=== PATIENT | male | born 1940 | race Caucasian/White ===

== ENCOUNTER 2016-09-27 18:49 | Observation (INO) | payer MEDICARE ==
[~2016-09-27] VITALS: Ht 185.4 cm; Wt 99.2 kg
[2016-09-27 18:50] VITALS: BP 157/85; PULSE 72; RESP 16; O2SAT 97
--- NOTE | 2016-09-27 18:56 | ED.REPORT ---
HPI-Headache Date of Service September 27, 2016 ED Provider: Dr. Emilio Shea 76 year old male with a hx of Afib on Coumadin, HTN and migraines who presents to the ER due to dizziness/vertigo since he woke up at 0730 this morning. His symptoms improved with remaining still. Immediately worsens with movement on position and sitting up. A few hours later he developed a generalized 6-7/10 headache which is worse with movement. Pt denies nausea and any recent falls or trauma. EMS was concerned when they noticed unequal BP's. R 142/90 and L 126/ 80.Pt was given IV fluids en route. 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 He has a history of migraines since he was a child. Nursing Notes Stated Complaint: VERTIGO,HEADACHE Chief Complaint: Headache Nursing Notes Reviewed: Yes Allergies: Coded Allergies: No Known Allergies (Unverified , 09/27/16) General Time Seen by MD: 18:55 Chief Complaint Headache Hx Obtained From: Patient, Spouse, EMS Arrived By: Ambulance Sudden in Onset?: No Onset Occurred: 9 - 12 hours ago Symptom Duration: Since onset Location: : Generalized Quality: Painful Severity: Current: Moderate Associated with: Reports: Vertigo, Denies: Nausea, Vomiting Exacerbated by: Head movement, Head position up, Head position down Risk-Headache NIH Stroke Scale Level of Consciousness: Alert and responsive (0) Ask Month & Age: Both questions right (0) Open/Close Eyes/Hand Dermatology Specialist: Performs both tasks (0) Horizontal EO Movements: None (0) Visual Shane: No visual loss (0) Facial Palsy: Normal symmetry (0) Right Arm Motor Drift (10s): No drift 10 sec (0) Left Arm Motor Drift (10s): No drift 10 sec (0) Right Leg Motor Drift (5s): No drift 5 sec (0) Left Leg Motor Drift (5s): No drift 5 sec (0) Limb Ataxia FNF/Heel-Hughes: No ataxia (0) Sensation (Arms/Legs/Face): No sensory loss (0) Language Aphasia: No aphasia, normal (0) Dysarthria: No dysarthria, normal (0) Extinction/Inattention: No exctinct/inattent (0) NIHSS Score: 0 Time NIHSS Performed: 19:15 Date NIHSS Performed: September 27, 2016 Past Medical History Past Medical History Hx migraine phenomenon DVT Reports: Hypertension Reports: Atrial fibrillation, Migraines Past Surgical History Bilat knee and ankle replacement Squamous Cell removed Smoking History Never Smoker Social History Other Social History: Good social support, Review of Systems Constitutional: Denies: Fever GI: Denies: Vomiting Neurologic: Reports: Dizziness, Headache, Spinning sensation, Denies: Change LOC, Syncope Complete sys rev & neg: except as marked. Physical Exam Initial Vital Signs Vital Signs (First) Date Time Temp Pulse Resp B/P Pulse Ox O2 Delivery O2 Flow Rate FiO2 09/27/16 18:50 36.6 72 16 157/85 97 Room Air Initial VS: Reviewed ENT: Mucous membranes moist, Conjunctiva normal, No scleral icterus Respiratory: Breath sounds normal, Clear to auscultation, No respiratory distress Abdomen / GI: Soft, Non-tender, No guarding, No rebound, No distention Extremities: Vascular intact, Neuro intact, No swelling, No tenderness Skin: Warm, Dry, No cyanosis Psychiatric: Mood/affect normal, Behavior normal, Normal thought content General/Constitutional: Awake, Alert Head / Eyes: Atraumatic, Normocephalic, PERRL Neck: Atraumatic, Full range of motion Neurologic: Oriented X3, Speech NL, No motor deficits Cardiovascular: Heart rate NL, No murmurs, Cap refill not delayed, Peripheral circulation NL, Pulses = bilaterally, No gross BP differential (148/78 on L; R 153/70) Heart Rate / Rhythm: Positive: Irreg irregular rhythm Interpretation & Diagnostics Lab Results Interpretation Result Diagram: 09/27/16199909/27/161999 Test 09/27/16 20:00 09/27/16 20:14 White Blood Count 4.1th/mm3 (3.8-10.1) Red Blood Count 4.96mil/mm3 (4.40-5.80) Hemoglobin 15.5g/dL (13.8-17.2) Hematocrit 46.0% (41.0-50.0) Mean Corpuscular Volume 92.7fL (81-100) Mean Corpuscular Hemoglobin 31.3pg (27.0-35.0) Mean Corpuscular Hemoglobin Concent 33.7% (32.0-37.0) Red Cell Distribution Width 12.5% (12.3-15.4) Platelet Count 189bil/L (150-400) Neutrophils (%) (Auto) 60.3% (40-74) Lymphocytes (%) (Auto) 27.1% (14-46) Monocytes (%) (Auto) 9.5% (4-12) Eosinophils (%) (Auto) 2.2% (0-5) Basophils (%) (Auto) 0.7% (0-3) Sodium Level 145mEq/L (134-144) Potassium Level 3.5mEq/L (3.5-5.2) Chloride Level 102mEq/L (97-108) Carbon Dioxide Level 28mmol/L (18-29) Blood Urea Nitrogen 19mg/dL (8-27) Creatinine 0.77mg/dL (0.76-1.27) Estimat Glomerular Filtration Rate 104mL/min (>59) Glucose Level 75mg/dL (60-99) Calcium Level 9.4mg/dL (8.5-10.1) Total Bilirubin 0.4mg/dL (0.0-1.2) Aspartate Amino Transf (AST/SGOT) 33U/L (0-50) Alanine Aminotransferase (ALT/SGPT) 26U/L (0-44) Alkaline Phosphatase 66U/L (25-160) Total Protein 6.9g/dL (6.4-8.4) Albumin 4.1g/dL (3.4-5.0) Hold Purple Top Tube Received (Received) Prothrombin Time 27.0sec (8.1-12.5) Prothromb Time International Ratio 2.48ratio Hold Blue Top Tube Received (Received) Urine Color Yellow (YELLOW) Urine Appearance Clear (CLEAR,HAZY) Urine pH 7.0 (5.0-8.0) Urine Specific Igo <1.005 (1.003-1.035) Urine Protein Negativemg/dL (NEG,TRACE) Urine Glucose (UA) Negativemg/dL (NEGATIVE) Urine Ketones Negativemg/dL (NEGATIVE) Urine Occult Blood Negative (NEGATIVE) Urine Nitrite Negative (NEGATIVE) Urine Bilirubin Negative (NEGATIVE) Urine Urobilinogen Normalmg/dL (NORMAL) Urine Leukocyte Esterase Negative (NEGATIVE) Urine RBC 0-2/hpf (0-2) Urine WBC 0-5/hpf (0-5) Urine Epithelial Cells Occasional/hpf (NONE-MOD) Urine Crystals None seen (NONE SEEN) Urine Bacteria None/hpf (NONE-FEW) Urine Hyaline Casts None/lpf (NONE) Urine Granular Casts None seen (NONE SEEN) Urine Waxy Casts None seen (NONE SEEN) Urine Red Blood Cell Casts None seen (NONE SEEN) Urine White Blood Cell Casts None seen (NONE SEEN) Urine Mucus None seen (None Seen) Urine Trichomonas None seen (NONE SEEN) Urine Yeast None (NONE SEEN) Urinalysis Comment None Urine Culture Reflexed Not indicated Hold Urine Received (Received) Hold [place] Top Tube Received (Received) General Lab Results Interp 1: Labs reviewed ECG Interpretation Time: 19:03 Interpreted by: ED physician Rhythm / Conduction: Atrial fibrillation (rate 66) Re-Eval/Medical Decision Re-Evaluation/Progress : Time of Eval: 20:55 Re-Evaluation/Progress Note: Pt still unable to stand secondary to symptoms. Headache improved but still present. Recommended admission. Pt understands and agrees with plan. All questions addressed. Consultation : Referral / Consult Name: Fredo Cardenas MD Consulted With: Hospitalist Call Returned at: 21:02 Electrical Apprentice: Will see patient, Agrees with eval, Agrees with plan, Accepts admit Counseled Regarding: Diagnosis, Lab results, Need for admission Discharge & Departure Impression: Primary Impression: Vertigo Additional Impression: Headache Headache type: unspecified Headache chronicity pattern: acute headache Intractability: not intractable Qualified Code: R51 - Headache Disposition: ADMITTED TO HOSPITAL Discharge Condition All VS Reviewed: Yes Scribe Attestation Portions of this note were transcribed by Sarah Denson. I, (Dr. Shea) personally performed the history, physical exam and medical decision-making; I reviewed and confirmed the accuracy of the information in the transcribed note. Signed by: Sarah Denson. Tim, 09/27/2016, 2103 Emilio Shea MD September 27, 2016 18:56 Sarah Denson September 27, 2016 19:09
[2016-09-27] MEDS ORDERED: 0.9% Sodium Chloride 1,000 ML IV ONE (19:31)
[2016-09-27] MEDS ORDERED: Ketorolac 15 mg/mL Inj IVPUSH ONE (19:35)
[2016-09-27] MEDS ORDERED: MetoCLOpramide 5 mg/mL 2 mL Inj IVPUSH ONE (19:35)
[2016-09-27 20:20] VITALS: BP 137/77; PULSE 66; RESP 19; O2SAT 93
[2016-09-27 21:02] LABS: BASOPHILS % (AUTO) 0.7 % (0-3); EOSINOPHILS % (AUTO) 2.2 % (0-5); MONOCYTES % (AUTO) 9.5 % (4-12); Mean Corpuscular Hemoglobin 31.3 pg (27.0-35.0); Mean Corpuscular Volume 92.7 fL (81-100); NEUTROPHILS % (AUTO) 60.3 % (40-74); Platelet Count 189 bil/L (150-400)
[2016-09-27 21:07] LABS: APPEARANCE,URINE CLEAR (CLEAR,HAZY); COLOR,URINE YELLOW (YELLOW); OCCULT BLOOD,URINE NEGATIVE (NEGATIVE); UROBILINOGEN,URINE NORMAL (NORMAL)
[2016-09-27 21:08] VITALS: BP 138/76; PULSE 75; RESP 19; O2SAT 92
[2016-09-27 21:10] LABS: INR 2.48 ratio
--- NOTE | 2016-09-27 21:49 | PCM.HPMED ---
Subjective Date of Service September 27, 2016 Primary Provider: Admitting Physician: Primary Care Physician: Other,Physician Attending Physician: Admit Status: From the Emergency Department Chief Complaint: Vertigo History of Present Illness: This is a 76-year-old male with past medical history significant for atrial fibrillation on chronic anticoagulation with Coumadin, hypertension, and migraine headaches who presents emergency department with vertigo. The patient states that he woke up this morning around 7 AM and had a spinning sensation. Symptoms improve when he sits still and worsen with any movement. Several hours after the vertigo began he developed a headache that was also worse with movement. He states the headache is a severity of 7/10 and described as throbbing in the forehead bilaterally. The headache is associated with phonophobia and photophobia. He describes mild nausea. he denies any vomiting , diarrhea, ear pain or discharge, recent URI symptoms such as congestion or cough, history of allergies. The patient's past medical history is significant for a suspected stroke several years ago which was later diagnosed as migraine phenomenon after a normal brain MRI. He has had chronic migraines since childhood which have worsened over the last several years. In the emergency department initial vitals were temperature 36.6 Celsius, pulse 72, respiratory rate 16, blood pressure 157/85, satting at 97% on room air. Initial laboratory values showed a CBC without concerning abnormalities. Sodium was 145. BUN 19, creatinine 0.77. PT 27, INR 2.48. Urinalysis within normal limits. NIHSS stroke scale completed in emergency department was 0. Brain MR showed moderate microvascular ischemic changes of aging but was otherwise unremarkable. In the emergency department patient was given Toradol, Reglan, and Benadryl. He did not have much relief of the vertigo from the medications and will be admitted. Review of Systems: A comprehensive review of systems was conducted with the patient and found to be negative except as above in the History of Present Illness. Allergies Coded Allergies: No Known Allergies (Unverified , 09/27/16) Home Medications Amlodipine 5mg dialy Warfarin 2mg everyday Chlorthalidone 25mg HS PMH History of migraine headaches with migraine phenomenon History of multiple DVT's. Hypertension Atrial fibrillation on chronic anticoagulation with Coumadin Surgical History Bilateral knee replacements. Squamous cell carcinoma removal. Family History Mom: osteoarthritis Dad: tachy-washington syndrome. Social History Hx Alcohol Use: No Hx Substance Use: No Hx Tobacco Use: No Smoking Status: Never Smoker Exam Vital Signs Vital Sign - Last Date Time Temp Pulse Resp B/P Pulse Ox O2 Delivery O2 Flow Rate FiO2 09/27/16 21:08 75 19 138/76 92 Room Air 09/27/16 18:50 36.6 Exam General: No acute distress, well-developed, well-nourished, appropriately interactive HEENT: Normocephalic, atraumatic. External ears without defect. Tympanic membrane without erythema. Pupils equal, round, and reactive to light and accommodation. Anicteric sclerae, moist conjunctivae, and no lid lag. Oropharynx free of erythema and cobble stoning with moist mucosa. Neck: Supple with full range of motion. No jugular venous distension. No bruits. No lymphadenopathy or thyromegaly. Cardiovascular: Regular rate and rhythm with no murmurs, rubs, or gallops appreciated Pulmonary: Clear to auscultation bilaterally with no crackles, wheezes, or rhonchi. Normal respiratory effort with no use of accessory muscles. Abdomen: Bowel tones present. Soft, nontender, nondistended. No hepatosplenomegaly or masses appreciated. Extremities: No clubbing, cyanosis, edema, or lymphadenopathy appreciated. Skin: Normal temperature, turgor, and texture; no rash, ulcers, or subcutaneous nodules appreciated. Neurological: Cranial nerves grossly intact. Normal muscle strength, tone, and bulk. Reflexes, coordination, and sensory function within normal limits. No known gait impairment. Psychiatric: Normal mood and affect. Alert and oriented to person, place, and time. Lab and Diagnostics Result Diagram: 09/27/16199909/27/161999 X-Rays, CTs and MRIs MRI stroke protocol 09/27/2016: IMPRESSION: BRAIN MRI: No acute intracranial abnormality is seen. Moderate microvascular ischemic change of aging is present. BRAIN MR ANGIOGRAM: No abnormalities the MR angiogram of the brain without contrast. NECK MR ANGIOGRAM: No abnormalities on MRI angiogram of the neck with contrast. The estimate of stenosis included in the report of the imaging study was calculated using the NASCET method Dictated by: Ricky Brown M.D. on 09/27/2016 at 22:07 Assessment & Plan This is a 76 year old male with history of atrial fibrillation who presents with new onset vertigo. The vertigo began this morning. The spinning sensation is worse with movement. Several hours after vertigo began a frontal throbbing headache developed with photophobia and phonophobia. This is likely represents BPPV. Differential includes CVA (MRI stroke protocol showed no concerning abnormality), infectious, meniere disease, neoplasm (doubt due to no systemic symptoms and normal MR), complex migraine. Persistent vertigo, present on admission, ongoing: -MRI stroke protocol showed no concerning abnormalities. -Unknown etiology but suspect BPPV vs. complex migraine. -Diazepam 2mg TID for vertigo. -Physical therapy consult ordered. Atrial fibrillation, present on admission, ongoing: -On admit PTT 27, INR 2.48. -Continue warfarin. History of migraine headaches, present on admission, ongoing: -Infrequent headaches. -Patient states the headache is somewhat improved after Toradol. Hypertension: -Continue Norvasc and chlorthalidone. DVT prophylaxis: patient on warfarin. Patient is admitted under observation status with expected length of stay less than 2 midnights due to severity of presenting symptoms, risk of adverse event, and complexity of treatment plan. Attending Statement The patient was seen and examined together with Dr. Duarte on 09/27 and I agree with the history, exam and plan as outlined in the note above. Andry Duarte DO September 27, 2016 21:48 Fredo Cardenas MD Sep 28, 2016 00:51
--- NOTE | 2016-09-27 22:16 | DRSVH ---
PROCEDURE: MRI STROKE PROTOCOL ([id number]) Pre- and post-contrast brain MRI, non-contrast brain MR angiogram, pre- and postcontrast neck MR ra ogram INDICATIONS: vertigo TECHNIQUE: Brain: Noncontrast axial T1 spin echo, axial T2 fast spin echo, sagittal and axial FLAIR, coronal T2 fast spin echo, axial gradient echo, axial diffusion and ADC through the brain. After the administr ation of contrast, axial 3D VIBE of the cranial vasculature and brain. Brain MRA: Non-contrast 3-D time of flight MR angiogram, with multiple ervtwho-yunexojui-czlubxcikj (MIP) reformats performed. Neck MRA: Axial and sagittal TruFISP through the neck. Coronal dynamic MR angiogram during administ ration of contrast in the arterial and venous phases, with 3-dimenstional bizcpmu-krrztftoq-horgyrtsc n (MIP) reformats constructed from subtraction images. COMPARISON: None. FINDINGS: Image quality: Excellent. BRAIN: CSF spaces: Ventricles are normal in size and shape. Basal cisterns are patent. No extra-axial flu id collections. Brain: No intracranial bleeds or mass effects. Miller-white matter interface is normal. Moderate antonina unt of periventricular and deep white matter increased signal on flair images consistent with acute v ascular ischemic change of aging. Diffusion weighted images show no acute ischemic insults. Brainste m appears normal. Normal intravascular flow voids are present. No abnormal intracranial enhancement . Skull and face: Calvarial marrow signal is normal. Orbits appear normal. Sinuses: Sinuses and mastoids show minimal mucosal thickening in the ethmoid sinuses and mild in the left maxillary sinus. BRAIN MR ANGIOGRAM: Anterior circulation: Intracranial internal carotid arteries are normal in size and enhancement. Th e flow within the paired anterior cerebral arteries is normal and symmetric. The flow within the mid dle cerebral arteries is normal and symmetric. The anterior communicating artery is seen. No stenos es, occlusions, or aneurysms. Posterior circulation: The visualized portions of the vertebral arteries demonstrate normal caliber, and join to form a normal appearing basilar artery. The flow within the posterior cerebral arteries is normal and symmetric. No stenoses, occlusions, or aneurysms. NECK MR ANGIOGRAM: Carotids: Great vessels demonstrate a conventional anatomy as they arise from the aortic arch. The origins of the common carotid arteries appear patent. The calibers and courses of both common caroti d arteries are normal. The bifurcation regions appear normal bilaterally. The internal carotid edwar giancarlo demonstrate normal course and caliber. Posterior circulation: The origins of the vertebral arteries appear patent. More superior portions of both vertebral arteries demonstrate normal course and caliber, and join to form a normal appearing basilar artery. Miscellaneous: Subclavian arteries appear patent. Pre-contrast images through the neck show no soft tissue abnormalities. IMPRESSION: BRAIN MRI: No acute intracranial abnormality is seen. Moderate microvascular ischemic change of aging is present. BRAIN MR ANGIOGRAM: No abnormalities the MR angiogram of the brain without contrast. NECK MR ANGIOGRAM: No abnormalities on MRI angiogram of the neck with contrast. The estimate of stenosis included in the report of the imaging study was calculated using the NASCET method Dictated by: Ricky Brown M.D. on 09/27/2016 at 22:07 Approved by: Ricky Brown M.D. on 09/27/2016 at 22:14
--- NOTE | 2016-09-27 22:16 | NUR ---
Report received from Katy in ED.
[2016-09-27 22:18] VITALS: BP 138/76; PULSE 75; RESP 19; O2SAT 92
[2016-09-27] MEDS ORDERED: Alum-Mag Hydrox-Simeth 30 mL Suspension PO PRN ×2 (22:35→22:40)
[2016-09-27] MEDS ORDERED: Ondansetron 2 mg/mL 2 mL Inj IVPUSH PRN (22:35)
[2016-09-27] MEDS ORDERED: Polyethylene Glycol (PEG) 17 Gm Powder PO PRN (22:40)
[2016-09-27] MEDS ORDERED: LEVO75TA4 PO (22:58)
[2016-09-27] MEDS ORDERED: TAMS0.4C29 PO (22:58)
[2016-09-27] MEDS ORDERED: LOSA100T29 PO (22:58)
[2016-09-27] MEDS ORDERED: MULT-140 PO (22:58)
[2016-09-27] MEDS ORDERED: AMLO5TAB2 PO (22:58)
[2016-09-27] MEDS ORDERED: DEXT1DRO8 BOTH_EYES (22:58)
[2016-09-27] MEDS ORDERED: HYG25 PO (22:58)
[2016-09-27] MEDS ORDERED: ACET325T51 PO (22:59)
[2016-09-27] MEDS ORDERED: WARF2TAB7 PO ×2 (23:00)
--- NOTE | 2016-09-27 23:08 | NUR ---
ADMIT Pt arrived on floor at 2300, ambulatory with 1-2P assistance. A&Ox4, no pain, "very hungry," talkative, reports vertigo when moving. Continuing care.
[2016-09-27 23:22] VITALS: BP 139/89; PULSE 69; RESP 20; O2SAT 94
[2016-09-28] VITALS (10 sets, daily range): BP systolic 119–158; BP diastolic 73–102; PULSE 54–75; RESP 18–24; O2SAT 95–96
--- NOTE | 2016-09-28 00:14 | NUR ---
MEDS Pt requested to take all HS medications--synthroid, cozaar, coumadin, & flomax--tonight to continue his regular regime. Already gave synthroid. Paged Dr. Duarte, awaiting reply. Addendum: 09/28/16 at 0021 by SILVINO ELE RN Dr. Duarte on unit and updated him on the medications pt would like to take. agrees to this and went to speak with pt. Continuing care.
--- NOTE | 2016-09-28 00:15 | NUR ---
CPAP Pt has cpap at home, did not bring tonight. Called Evens Kwon in [place] about this. He suggests using 2-3L NC and have pt's bring in cpap tomorrow night. Pt also has LIANE mouthpiece which he plans on using tonight.
--- NOTE | 2016-09-28 00:33 | PCM.PHAPRO ---
Progress Date of Service: Sep 28, 2016 Vertigo Warfarin Management Per Pharmacy: Indication: Atrial fibrillation ([id number] = 3) INR Goal: 2-3 Home Dose: Warfarin 4 mg Mon/Fri and 2 mg all other days Labs: Hct: 46 Plt: 189 INR: 2.48 Drug Interactions: None Recommendation: Warfarin 2 mg PO x 1 tonight (continuing patient's home dose) Pharmacy to continue to monitor and adjust dose as needed. Thank You, Jie Valle, Pharm D. Jie Valle Sep 28, 2016 00:33
--- NOTE | 2016-09-28 03:05 | NUR ---
[employer] called at 0305, pt had 4 beats of vtach. Pt sleeping sounding with regular breathing, when woken up pt reported asymptomatic. BP 119/73, HR 65, O2 93%. Paged Dr. Duarte with this information. Addendum: 09/28/16 at 0555 by SILVINO LEE RN 3 second pause at 0554. Agustin Duarte. Addendum: 09/28/16 at 0557 by SILVINO LEE RN Pt asymptomatic at 0555, sleeping soundly.
--- NOTE | 2016-09-28 09:06 | NUR ---
Case Management: ZAMORA and Medicare Part D given and explained to patient at bedside at 0845. No questions at this time. Signed original placed on hard chart; copy provided to ptVIOLET Oro RN
--- NOTE | 2016-09-28 10:24 | NUR ---
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 EMR reviewed: Pt has [employer] plan of [place]. His PCP is Dr Garcia at [facility]. Readmit score is 1. No VA benefits, no LTC insurance. Pt's will bring in DPOA paperwork. See attached CM initial assessment. DIRECTOR OF NUCLEAR MEDICINE met with pt - pt's also in the room. Introduced D/C planning and explained SW role. Pt lives at home with his on [facility]. He is fairly independent at baseline. He uses a cane and a walker due to frequent weakness - multiple surgeries for joint replacement as well as vertigo. He is enrolled in outpt PT at [facility]. Pt and plan to d/c home but worries about leaving him at home due to frequent falls. DIRECTOR OF NUCLEAR MEDICINE provided Senior Resources Guide for information about [employer] and paid private caregivers. PT working with pt. DIRECTOR OF NUCLEAR MEDICINE provided support and will continue to follow. Assessment: Pt would benefit from continued Outpt PT as well as [employer] and paid caregivers when needed. Plan: Home with in [facility]. KERRY Ramirez Addendum: 09/28/16 at 1030 by KLAUDIA GAN Amended: Links added.
[2016-09-28 13:06] LABS: INR 2.18 ratio
[2016-09-28] MEDS ORDERED: Potassium Chloride 20 mEq SR Tablet PO ONE (14:00)
--- NOTE | 2016-09-28 14:57 | CONS ---
[address] [address] CONSULTATION REPORT PATIENT: JAYDEN YARBROUGH : 1940 MR#: [id number] ADMIT: 09/27/2016 JOB ID: [id number] DATE OF SERVICE: 09/28/2016 CARDIOLOGY CONSULTATION: IDENTIFICATION: Dr. Maya Reyes has asked that I consult on this 76-year-old male admitted with vertigo and atrial fibrillation. 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 He has been followed by the [facility] around five years ago, developed persistent chronic atrial fibrillation for which he was put on anticoagulation and atenolol although the latter was stopped because of bradycardia. He has subsequently done relatively well although underwent a complete cardiovascular evaluation just several months ago by [facility] which included an echocardiogram and a stress myocardial perfusion imaging test. While those results are not currently available, the patient said everything was "okay" and there was no need for any further evaluation. Since then, he has been trying to improve his cardiovascular fitness by riding a stationary bike 10-12 minutes daily and is able to achieve a heart rate of around 100 BPM with this and is more limited by ankle and knee pain. He was in his usual state of health when he awoke yesterday morning with clear vertigo with a spinning sensation that was so profound that it prevented him from standing. It is not clear that there was any presyncope and the symptoms clearly worsened with any type of movement or position change and subsided with stillness. Because of this, he presented to the emergency department where his heart rate was in the 70s and blood pressures in the 130s despite having ongoing symptoms. A brain MRI and MRA were unremarkable except for some microvascular changes but were otherwise normal. He was subsequently admitted and last night was noted to have bradycardia briefly into the 30s with pauses up to 3.1 seconds, although he was not wearing his usual CPAP for his sleep apnea. Otherwise, his heart rates have generally been in the 50-75 bpm range without any pauses. He denies any history of palpitations or presyncopal symptoms and has never had any anginal symptoms. He states that his vertigo has improved today after physical therapy did a manipulation to align his vestibular crystals. CARDIAC RISK FACTORS: Notable for history of hypertension and a history of borderline hyperlipidemia. He has a history of rare tobacco use, rarely smoking a cigar or cigarette and none for the last 25 years. There is no diabetes. FAMILY HISTORY: Notable only for a father who required a pacemaker and is 80 and a mother who required an aortic valve replacement in her 80s. PAST MEDICAL HISTORY: Notable for migraine headaches. He has a history of DVTs and osteoarthritis status post bilateral knee replacement surgery and ankle surgery. He has documented obstructive sleep apnea for which he uses CPAP. He has a history of hypothyroidism for which he is on thyroid replacement therapy. He had a previous corneal transplant. HOME MEDICATIONS: 1. Amlodipine 5 mg daily. 2. Warfarin 2 mg daily. 3. Chlorthalidone 25 mg daily. 4. He reports also being on losartan and thyroid replacement medication although those are not listed. FAMILY HISTORY: As above. 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 He lives with his and denies any alcohol consumption. REVIEW OF SYSTEMS: Denies any history of any recent fevers or chills or weight change. Denies any vision change. Denies any ENT problems except for occasional hard of hearing. Denies any cough or hemoptysis. He has had no resting dyspnea or orthopnea. Denies any peptic ulcer disease or GI blood loss. Denies any genitourinary complaints except for prostatism. No history of any hematuria. Denies any history of stroke or any recent change in his thyroid medication. Had no history of any bleeding disorder. Denies any recent anxiety or depression. PHYSICAL EXAM: Mildly obese, talkative elderly male in no distress. HR: 60s. BP 125/85. O2 saturation 96% on room air. Weight 99.2 kg. Skin: Warm and dry. HEENT: EOMI without arcus. He has fairly good dentition. Lungs: Clear bilaterally to auscultation and percussion. CV : Irregularly irregular rhythm with a normal S1 and S2 without any appreciable murmurs or gallops. There is no obvious JVD. Carotid and femoral pulses are 2+ bilaterally with a normal upstroke and without bruit. Dorsalis pedis is 2+ on the right and nonpalpable on the left while posterior tibial pulse is nonpalpable on the right and 2+ on the left. Abdomen: Mildly obese but nondistended, nontender without any organosplenomegaly. Normal bowel tones are present without bruits. Extremities: Mild dermatologic changes of chronic stasis with trace bilateral edema. They are warm and dry. Neuro: Moves all four extremities. Psych: Awake, alert, and oriented. LABORATORY: Hematocrit was 46% with a white count of 4.1, and a presenting INR of 2.48 and this morning is 2.18. His sodium on admission was 145 with a potassium of 3.5 and a BUN of 19 and a creatinine of 0.77. LFTs are normal. ECG: Shows atrial fibrillation at 66 bpm with a low QRS voltage and some nonspecific repolarization abnormalities. Telemetry: Showed bradycardia at night with pauses up to 3.1 seconds as well as a rare PVCs with a four beat run early this morning. IMPRESSION: 1. Atrial fibrillation with mildly blunted chronotropic response. I do not believe that the patient requires a pacemaker implantation as none of his symptoms correlate with his mildly reduced heart rate. Clearly, he has vertigo, likely secondary to an inner ear issue given the improvement with the physical therapy manipulation today. He has had no presyncopal symptoms. I suspect that his transient bradycardia last night as well as his ventricular ectopy was likely due to untreated sleep apnea because he was not using a CPAP. It does not sound like he has significant chronotropic insufficiency given his recent stress test results and the reassurance by his physicians at [facility]. Given this, I do not think a pacemaker is indicated at this time, but he should continue to be monitored as an outpatient for any signs of symptomatic bradycardia or pauses. I did encourage him to continue to wear his CPAP as much as possible. 2. Premature ventricular contractions with a four beat run. I suspect this may be secondary to his borderline low potassium. Given this, I would supplement his potassium as well as magnesium on a chronic basis as long as he is on chlorthalidone. 3. Hypertension. Adequately controlled. 4. Hypothyroidism on thyroid replacement therapy. A TSH should be checked. 5. Vertigo. Per the hospitalist. RECOMMENDATION: 1. Continue current medications, but supplement potassium and magnesium as long as he is on chlorthalidone with observation of his electrolytes, maintaining a potassium level greater than 4.0 and a magnesium greater than 2.0. 2. He should followup with his physicians at [facility] to continue to monitor his atrial fibrillation. 3. From a cardiology standpoint, I suspect that he can be discharged. If he spends the night, he should be given CPAP treatment to avoid further bradycardia episodes. At this point, I will sign off. If you have any further questions or concerns, please do not hesitate to call. I spent 1 hour 30 minutes reviewing the medical record, interviewing and examining the patient, answering his questions and communicating with his other providers. DESTINY
[2016-09-28 15:12] LABS: Magnesium 2.1 mg/dL (1.6-2.6)
--- NOTE | 2016-09-28 16:06 | DRSVH ---
[facility] [address] [place] [address] Echocardiogram Report Name: JAYDEN YARBROUGH Study Date: 09/28/2016 Height: 73 in Hospital Exam Location: [facility] Weight: 219 lb Gender: Male BSA: 2.2 m2 : 1940 Age: 76 yrs BP: 125/85 mmHg Reason For Study: Dizziness History: afib, hypertension Ordering Physician: Performed By: Cammie CARUSOIST [facility] Interpretation Summary The ejection fraction is estimated to be 55-60%. There is mild mitral regurgitation. There is mild tricuspid regurgitation. The right ventricular systolic pressure is estimated at 30 mmHg assuming a right atrial pressure of 3 mm Hg. Procedure: A two-dimensional transthoracic echocardiogram with color flow and Doppler was performed. The patient had an echocardiogram, but there is no comparison study available. The study quality was technically adequate. The patient was in atrial fibrillation with heart rates between 49-77 bpm during the exam. Left Ventricle: Proximal septal thickening is noted. The left ventricle is normal in size. The ejection fraction is estimated to be 55-60%. Left ventricular wall motion is normal. Diastolic function could not be accurately assessed due to atrial fibrillation. Right Ventricle: The right ventricle is mildly dilated. The right ventricular systolic function is normal. Atria: The left atrium is severely dilated. The right atrium is moderately dilated. There is no Doppler evidence for an interatrial shunt. Mitral Valve: The mitral valve is normal in structure and function. There is mild mitral regurgitation. Aortic Valve: The aortic valve is trileaflet. The aortic valve is mildly calcified. The aortic valve opens well. No aortic regurgitation is present. Tricuspid Valve: The tricuspid valve leaflets are thin and pliable. There is mild tricuspid regurgitation. The right ventricular systolic pressure is estimated at 30 mmHg assuming a right atrial pressure of 3 mm Hg. Pulmonic Valve: The pulmonic valve is normal in structure and function. There is a trace or physiologic amount of pulmonic regurgitation. Great Vessels: The aortic root is normal size. The ascending aorta is mildly enlarged. The aortic arch is mildly enlarged. The IVC is of normal diameter and collapses greater than 50% with a sniff. This suggests a low right atrial pressure of 3 mm Hg. Pericardium/ Pleura There is no pericardial effusion. MMode/2D Measurements & Calculations LVIDd: 4.7 cm LA dimension: 4.7 cm RA long axis LVOT diam: 2.1 cm LVIDs: 2.8 cm AoV Opening FS: 41.9 % LA A2 area: 30.0 cm RA area EPSS: 0.50 cm LA A4 area: 33.8 cm Ao root diam IVSd: 1.3 cm LA length (vol) : 30.2 cm LVPWd: 1.1 cm RA vol Aortic Jxn: 2.5 cm LA vol: 113.5 ml : 98.7 ml asc Aorta Diam LA vol index RA : 44.2 mm2 Ao Arch Diam (Prox Trans): 3.3 cm IVC diam: 1.3 cm LV townsend. diameter/BSA LV sys. diameter/BSA RVD1 (basal) TAPSE: 2.3 cm (cm/m^2): 2.1 (cm/m^2): 1.2 Doppler Measurements & Calculations Ao V2 max MV E max amor Med Peak E' Amor TR max amor : 105.9 cm/sec : 81.1 cm/sec : 259.1 cm/sec Ao max P.5 mmHg MV P1/2t E/E' med: 10.5 TR max PG Ao mean P.3 mmHg : 51.2 msec Lat Peak E' Amor : 26.9 mmHg LVOT Max Amor PA V2 max : 67.2 cm/sec E/E' lat: 6.2 : 79.4 cm/sec E/e' average: 8.3 PA mean PG HEAVEN(I,D): 2.5 cm sev ratio: 0.70 PA Accel Time : 0.07 sec MV P1/2t max amor Ao V2 mean LV V1 max PG PA V2 mean : 69.7 cm/sec : 48.2 cm/sec Ao V2 VTI LV V1 VTI: 13.7 cm MVA(P1/2t): 4.3 cm2 HEAVEN(V,D): 2.3 cm2 HEAVEN indexed to BSA (cm^2/m^2): 1.1 Electronically signed by: Ciro Chamorro on Reading Physician:09/28/2016 04:05 PM
--- NOTE | 2016-09-28 19:47 | PCM.PHAPRO ---
Progress Date of Service: Sep 28, 2016 Vertigo Warfarin Management Per Pharmacy: Indication: Atrial fibrillation ([id number] = 3) INR Goal: 2-3 Home Dose: Warfarin 4 mg Mon/Fri and 2 mg all other days Labs: Hct: 46 (09/27) Plt: 189 (09/27) INR: 2.18 INR 2.48 2.18 INR change -0.3 Warf Dose 2 MG 2 MG Drug Interactions: None Recommendation: Warfarin 2 mg PO x 1 tonight (continuing patient's home dose) Pharmacy to continue to monitor and adjust dose as needed. Thank You, Jie Valle, Pharm D. Jie Valle Sep 28, 2016 19:47
--- NOTE | 2016-09-28 20:14 | PCM.PNMED ---
Subjective Date of Service Sep 28, 2016 Subjective Patient is seen and examined. His was present and they both talked extensively about a neurological event that happened to him 3-4 years ago during which patient would drop sentences. All day yesterday he was feeling extremely dizzy with room spinning sensation. Patient's neurologist from [place] with wanting to know if an MRA was done overnight, and answers were provided to both patient and . Patient has a history of migraines that usually are accompanied by photophobia and phonophobia. He has received PT/OT for vestibular exercises and sid maneuvers this a.m. and he thinks it has helped a little. PT/OT would like to see him again tomorrow a.m. treat his left side. Patient currently denies nausea, states that he has always had tinnitus. Overnight patient had a 4 beat V. tach, bradycardia in the 30s for about on and off for one and half hours, and a very brief 3 second pause. No other concerns were expressed Exam Vital Signs Vital Sign - Last Date Time Temp Pulse Resp B/P Pulse Ox O2 Delivery O2 Flow Rate FiO2 09/28/16 18:42 158/100 09/28/16 18:35 67 09/28/16 15:36 36.9 20 95 Room Air Intake and Output 09/27/16 09/27/16 09/28/16 Cumulative From/Thru 15:00 23:00 07:00 09/27/16 18:50 - 09/28/16 05:11 Intake Total 1000 ml 140 ml 1140 ml Balance 1000 ml 140 ml 1140 ml Intake Oral 120 ml 120 ml IV Total 1000 ml 20 ml 1020 ml Exam Gen.: No acute distress sitting up and talking with the and examiner HEENT: Normocephalic, atraumatic Heart: No history S4 murmurs: Irregular rhythm Lungs: Clear to auscultation no crackles or wheezes Abdomen soft nontender nondistended Skin: Warm and dry Neurological CN II-12 are grossly intact, negative Romberg's, negative finger-to -nose, negative alternating hands. Psychiatric: Negative for anxiety IVs and Medications IV Fluids none Medications Reviewed: Medications were reviewed in detail Lab and Diagnostics Result Diagram: 09/27/16199909/28/16 1424 X-Rays, CTs and MRIs MRI stroke protocol 09/27/2016: IMPRESSION: BRAIN MRI: No acute intracranial abnormality is seen. Moderate microvascular ischemic change of aging is present. BRAIN MR ANGIOGRAM: No abnormalities the MR angiogram of the brain without contrast. NECK MR ANGIOGRAM: No abnormalities on MRI angiogram of the neck with contrast. The estimate of stenosis included in the report of the imaging study was calculated using the NASCET method Dictated by: Ricky Brown M.D. on 09/27/2016 at 22:07 Cardiac Echo Impressions Cardiac echo performed on 09/28/16 Interpretation Summary The ejection fraction is estimated to be 55-60%. There is mild mitral regurgitation. There is mild tricuspid regurgitation. The right ventricular systolic pressure is estimated at 30 mmHg assuming a right atrial pressure of 3 mm Hg. Electronically signed by: Ciro Chamorro on Reading Physician:09/28/2016 04:05 PM Assessment & Plan This is a 76 year old male with history of atrial fibrillation who presents with new onset vertigo. The vertigo began this morning. The spinning sensation is worse with movement. Several hours after vertigo began a frontal throbbing headache developed with photophobia and phonophobia. This is likely represents BPPV. Differential includes CVA (MRI stroke protocol showed no concerning abnormality), infectious, meniere disease, neoplasm (doubt due to no systemic symptoms and normal MR), complex migraine. Also investigated cardiac etiologies of dizziness. Overnight monitoring findings of bradycardia in 30s: -- Cardiology is consulted. Dr. Shook has seen the patient. He feels that patient's symptoms are purely due to BPPV, as he was not bradycardic at home and in the ER and his symptoms persisted. He also feels that because patient did not use CPAP overnight he may have had some chicken telemonitoring changes. Recommends keeping potassium levels and magnesium levels up. One-time doses of both potassium and magnesium were given. -- We will appreciate their recommendations Persistent vertigo, present on admission, ongoing: -MRI stroke protocol showed no concerning abnormalities. -Unknown etiology but suspect BPPV vs. complex migraine. -Diazepam 2mg TID for vertigo. -Meclizine 25 mg 3 times a day when necessary for vertigo, patient is encouraged to take them only if symptoms get worse -Physical therapy consult ordered: They have diagnosed him with BPPV positive on the right side they will return to the left side Atrial fibrillation, present on admission, ongoing: -On admit PTT 27, INR 2.48. -Continue warfarin. -Continue telemonitoring History of migraine headaches, present on admission, ongoing: -Infrequent headaches. -Patient states the headache is somewhat improved after Toradol. Hypertension: -Continue Norvasc and chlorthalidone. DVT prophylaxis: patient on warfarin. Pharmacy consult is ordered Patient is admitted under observation status with expected length of stay less than 2 midnights due to severity of presenting symptoms, risk of adverse event, and complexity of treatment plan. VTE Prophylaxis: Other (patient is on Coumadin) Resuscitation Status: CPR: Attempt Resuscitation Time spent 30 minutes Maya Reyes DO Sep 28, 2016 20:14
[2016-09-29 01:07] VITALS: BP 124/86; PULSE 69; RESP 16; O2SAT 95
[2016-09-29 03:10] VITALS: O2SAT 95
--- NOTE | 2016-09-29 04:39 | NUR ---
Mobility Pt up to bathroom SBA with FWW. Pt denies dizziness, denies pain. Pt stating does feel a little "unsteady" when standing. Instructed pt to use call light for needs, frequent rounding. Pt wearing CPAP while sleeping this shift.
[2016-09-29 06:08] VITALS: BP 135/84; PULSE 76; RESP 12; O2SAT 95
[2016-09-29 06:50] LABS: INR 2.41 ratio
[2016-09-29 07:40] VITALS: PULSE 69
[2016-09-29 08:00] VITALS: BP 129/82; PULSE 82; RESP 14; O2SAT 95
[2016-09-29] MEDS ORDERED: MECL-114 PO (09:00)
[2016-09-29] MEDS ORDERED: MAGN400T4 PO (09:01)
[2016-09-29] MEDS ORDERED: POTA8CAP10 PO (09:02)
--- NOTE | 2016-09-29 09:05 | PCM.DIMED ---
Discharge Instructions Date of Service Sep 29, 2016 Dates of Hospitalization September 27, 2016 at 21:58 Discharge Diagnosis Discharge Diagnosis BPPV Diet Discharge Diet: Low fat, Low Sodium, Heart Healthy Activity Discharge Activity: Outpatient Physical Therapy (Out patient vestibular therapy ) Patient Instructions Follow-up plan Please f/u with your PCP in 7-10 days Out patient neurology consult in 30 days for migraines Out patient vestibular therapy for 3 weeks with Paul Anand in [place] or some one of patient's choice Repeat BMP, magnesium in a month and send to PCP Maya Reyes DO Sep 29, 2016 09:05
--- NOTE | 2016-09-29 09:23 | PCM.DC.MED ---
Discharge Summary Date of Service Sep 29, 2016 Dates of Hospitalization Date of Hospital Admission September 27, 2016 at 21:58 Date of Discharge: Sep 29, 2016 Providers: Admitting Physician: Fredo Cardenas MD Primary Care Physician: Other,Physician Attending Physician: Fredo Cardenas MD Diagnosis at Time of Discharge Diagnosis at Time of Discharge BPPV, sinus bradycardia, afib on coumadin Consultations Cardiology, PT/OT Procedures XRay, CTs & MRIs MRI stroke protocol 09/27/2016: IMPRESSION: BRAIN MRI: No acute intracranial abnormality is seen. Moderate microvascular ischemic change of aging is present. BRAIN MR ANGIOGRAM: No abnormalities the MR angiogram of the brain without contrast. NECK MR ANGIOGRAM: No abnormalities on MRI angiogram of the neck with contrast. The estimate of stenosis included in the report of the imaging study was calculated using the NASCET method Dictated by: Ricky Brown M.D. on 09/27/2016 at 22:07 Cardiac Echo Impression Cardiac echo performed on 09/28/16 Interpretation Summary The ejection fraction is estimated to be 55-60%. There is mild mitral regurgitation. There is mild tricuspid regurgitation. The right ventricular systolic pressure is estimated at 30 mmHg assuming a right atrial pressure of 3 mm Hg. Electronically signed by: Ciro Chamorro on Reading Physician:09/28/2016 04:05 PM Brief History This is a 76-year-old male with past medical history significant for atrial fibrillation on chronic anticoagulation with Coumadin, hypertension, and migraine headaches who presents emergency department with vertigo. The patient states that he woke up this morning around 7 AM and had a spinning sensation. Symptoms improve when he sits still and worsen with any movement. Several hours after the vertigo began he developed a headache that was also worse with movement. He states the headache is a severity of 7/10 and described as throbbing in the forehead bilaterally. The headache is associated with phonophobia and photophobia. He describes mild nausea. he denies any vomiting , diarrhea, ear pain or discharge, recent URI symptoms such as congestion or cough, history of allergies. The patient's past medical history is significant for a suspected stroke several years ago which was later diagnosed as migraine phenomenon after a normal brain MRI. He has had chronic migraines since childhood which have worsened over the last several years. In the emergency department initial vitals were temperature 36.6 Celsius, pulse 72, respiratory rate 16, blood pressure 157/85, satting at 97% on room air. Initial laboratory values showed a CBC without concerning abnormalities. Sodium was 145. BUN 19, creatinine 0.77. PT 27, INR 2.48. Urinalysis within normal limits. NIHSS stroke scale completed in emergency department was 0. Brain MR showed moderate microvascular ischemic changes of aging but was otherwise unremarkable. In the emergency department patient was given Toradol, Reglan, and Benadryl. He did not have much relief of the vertigo from the medications and will be admitted. Hospital Course This is a 76 year old male with history of atrial fibrillation who presents with new onset vertigo. The vertigo began this morning. The spinning sensation is worse with movement. Several hours after vertigo began a frontal throbbing headache developed with photophobia and phonophobia. This is likely represents BPPV. Differential includes CVA (MRI stroke protocol showed no concerning abnormality), infectious, meniere disease, neoplasm (doubt due to no systemic symptoms and normal MR), complex migraine. Also investigated cardiac etiologies of dizziness. BPPV, present on admission, ongoing: -MRI stroke protocol showed no concerning abnormalities. -Meclizine 25 mg 3 times a day when necessary for vertigo, patient is encouraged to take them only if symptoms get worse -Physical therapy consult ordered: They have worked with patient, patient found relief with the Brendan maneuvers. Outpatient physical therapy for 3 weeks is recommended at discharge -- Patient is ambulating on the day of discharge and feeling much improved. Tolerating general diet without nausea or vomiting, his headaches have also improved. -- . Recommended to patient that he may follow-up with neurology in 1 month as outpatient for his complex migraines Overnight monitoring findings of bradycardia in 30s: -- Cardiology is consulted. Dr. Shook has seen the patient. He feels that patient's symptoms are purely due to BPPV, as he was not bradycardic at home and in the ER and his symptoms persisted. He also feels that because patient did not use CPAP overnight he may have had some chicken telemonitoring changes. Recommends keeping potassium levels and magnesium levels up. One-time doses of both potassium and magnesium were given. -- We will appreciate their recommendations: prescribed patient daily 8 meq potassium and 400 mg mag oxide, f/u lab work is recommended as below Atrial fibrillation, present on admission, ongoing: -On admit PTT 27, INR 2.48. -Continue warfarin. -Continue telemonitoring History of migraine headaches, present on admission, ongoing: -Infrequent headaches. -Patient states the headache is somewhat improved after Toradol. -- -- . Recommended to patient that he may follow-up with neurology in 1 month as outpatient for his complex migraines Hypertension: -Continue Norvasc and chlorthalidone. DVT prophylaxis: patient on warfarin. Pharmacy consult is ordered Exam Vital Signs (Last) Date Time Temp Pulse Resp B/P Pulse Ox O2 Delivery O2 Flow Rate FiO2 09/29/16 08:00 36.5 82 14 129/82 95 Room Air Exam Gen.: No acute distress sitting up in chair HEENT: Normocephalic, atraumatic Heart: No S3/S4 murmurs: Irregular rhythm Lungs: Clear to auscultation no crackles or wheezes Abdomen soft nontender nondistended Skin: Warm and dry Neurological negative Romberg's: Negative arm drift, slight instability is noted Psychiatric: Negative for anxiety Test 09/27/16 20:00 09/27/16 20:14 09/28/16 14:24 09/29/16 06:08 White Blood Count 4.1th/mm3 (3.8-10.1) Red Blood Count 4.96mil/mm3 (4.40-5.80) Hemoglobin 15.5g/dL (13.8-17.2) Hematocrit 46.0% (41.0-50.0) Mean Corpuscular Volume 92.7fL (81-100) Mean Corpuscular Hemoglobin 31.3pg (27.0-35.0) Mean Corpuscular Hemoglobin Concent 33.7% (32.0-37.0) Red Cell Distribution Width 12.5% (12.3-15.4) Platelet Count 189bil/L (150-400) Neutrophils (%) (Auto) 60.3% (40-74) Lymphocytes (%) (Auto) 27.1% (14-46) Monocytes (%) (Auto) 9.5% (4-12) Eosinophils (%) (Auto) 2.2% (0-5) Basophils (%) (Auto) 0.7% (0-3) Total Bilirubin 0.4mg/dL (0.0-1.2) Aspartate Amino Transf (AST/SGOT) 33U/L (0-50) Alanine Aminotransferase (ALT/SGPT) 26U/L (0-44) Alkaline Phosphatase 66U/L (25-160) Total Protein 6.9g/dL (6.4-8.4) Albumin 4.1g/dL (3.4-5.0) Hold Purple Top Tube Received (Received) Hold Blue Top Tube Received (Received) Urine Color Yellow (YELLOW) Urine Appearance Clear (CLEAR,HAZY) Urine pH 7.0 (5.0-8.0) Urine Specific [place] <1.005 (1.003-1.035) Urine Protein Negativemg/dL (NEG,TRACE) Urine Glucose (UA) Negativemg/dL (NEGATIVE) Urine Ketones Negativemg/dL (NEGATIVE) Urine Occult Blood Negative (NEGATIVE) Urine Nitrite Negative (NEGATIVE) Urine Bilirubin Negative (NEGATIVE) Urine Urobilinogen Normalmg/dL (NORMAL) Urine Leukocyte Esterase Negative (NEGATIVE) Urine RBC 0-2/hpf (0-2) Urine WBC 0-5/hpf (0-5) Urine Epithelial Cells Occasional/hpf (NONE-MOD) Urine Crystals None seen (NONE SEEN) Urine Bacteria None/hpf (NONE-FEW) Urine Hyaline Casts None/lpf (NONE) Urine Granular Casts None seen (NONE SEEN) Urine Waxy Casts None seen (NONE SEEN) Urine Red Blood Cell Casts None seen (NONE SEEN) Urine White Blood Cell Casts None seen (NONE SEEN) Urine Mucus None seen (None Seen) Urine Trichomonas None seen (NONE SEEN) Urine Yeast None (NONE SEEN) Urinalysis Comment None Urine Culture Reflexed Not indicated Hold Urine Received (Received) Hold [place] Top Tube Received (Received) Sodium Level 143mEq/L (134-144) Potassium Level 3.5mEq/L (3.5-5.2) Chloride Level 103mEq/L (97-108) Carbon Dioxide Level 28mmol/L (18-29) Blood Urea Nitrogen 21mg/dL (8-27) Creatinine 0.80mg/dL (0.76-1.27) Estimat Glomerular Filtration Rate 100mL/min (>59) Glucose Level 103mg/dL (60-99) Calcium Level 8.8mg/dL (8.5-10.1) Magnesium Level 2.1mg/dL (1.6-2.6) Thyroid Stimulating Hormone (TSH) 2.110uIU/mL (0.450-4.500) Prothrombin Time 26.2sec (8.1-12.5) Prothromb Time International Ratio 2.41ratio Discharge Medications Discharge Medications Amlodipine (Amlodipine) 5 Mg Tablet 5 MG PO QAM (Reported) Chlorthalidone (Chlorthalidone) 25 Mg Tablet 25 MG PO QAM (Reported) Levothyroxine (Levothyroxine) 75 Mcg Tablet 75 MCG PO HS (Reported) Losartan Potassium (Losartan Potassium) 100 Mg Tablet 100 MG PO HS (Reported) Magnesium Oxide (Magnesium Oxide) 400 Mg Tablet 400 MG PO DAILY Prescribed by: MAYA MATTHEWS DO Multivit with Calcium,Iron,Min (Therapeutic M) 1 Each Tablet 1 EACH PO QAM ( Reported) Potassium Chloride (Potassium Chloride) 8 Meq Capsule.er 8 MEQ PO DAILY TAKE WITH FOOD Prescribed by: MAYA MATTHEWS DO Tamsulosin ER (Tamsulosin ER) 0.4 Mg Cap.er.24h 0.4 MG PO HS (Reported) Warfarin Sodium (Warfarin Sodium) 2 Mg Tablet 4 MG PO MON/FRI (Reported) WARFARIN 4 MG MON/FRI AND 2 MG ALL OTHER DAYS Warfarin Sodium (Warfarin Sodium) 2 Mg Tablet 2 MG PO DAILY EXCEPT MON/FRI ( Reported) WARFARIN 4 MG MON/FRI AND 2 MG ALL OTHER DAYS As needed Acetaminophen (Acetaminophen) 325 Mg Tablet 650 MG PO Q4H PRN PRN For Fever ( Reported) Dextran 70/Hypromellose/Pf (Artificial Tears Drops) 1 Each Droperette 2 DROP BOTH_EYES Q2H PRN PRN DRY EYES (Reported) Meclizine (Bonine) 25 Mg Tab.chew 25 MG PO TID PRN PRN For Dizziness Prescribed by: MAYA MATTHEWS DO Followup Plan Follow-up plan Please f/u with your PCP in 7-10 days Out patient neurology consult in 30 days for migraines Out patient vestibular therapy for 3 weeks with Paul [facility] in [facility] or some one of patient's choice Repeat BMP, magnesium in a month and send to PCP Discharge Diet: Low fat, Low Sodium, Heart Healthy Discharge Activity: Outpatient Physical Therapy (Out patient vestibular therapy ) Time spent 35 min Maya Matthews DO Sep 29, 2016 09:23
--- NOTE | 2016-09-29 11:20 | NUR ---
Social Work: Discharge D: Pt discussed in am rounds. Pt is medically stable for discharge home. No social work needs have been identified. Orders finalized. JACQUARD LOOM FIXER spoke with pt to assess for unmet needs and confirm discharge plan. Pt agrees with the plan to discharge home and has been ambulating with the use of his FWW during admission. Pt has been I and ambulated 250 feet with PT- recommendation to continue to do outpatient PT. Pt agrees with this and expresses no concerns about his discharge. Pt's is on her way to pickup the patient. A: Pt who is I at baseline and lives with his on [facility]. P: Pt to discharge home today via POV and no social work needs. ELLY Moody
--- NOTE | 2016-09-29 11:50 | NUR ---
Discharge Pt discharged from unit. Taken off floor in wheelchair to be picked up by his . Pt provided with information on diagnosis, signs to watch for, new medications, and follow up. Pt understands that PCP will need to prescribe outpatient vestibular therapy and a neurology consult. Pt knows to have labs done in 1 month. Pt's belongings taken with him, including his phone, ipad, and CPAP.
== END 2016-09-29 11:40 | disposition home or self-care (01) ==
LOC: SED 18:49 → MOC 21:58
PROVIDERS: ADMIT Hospitalist; ATTEND Hospitalist
DX: H81.10 Benign paroxysmal vertigo, unspecified ear (principal); G43.909 Migraine, unspecified, not intractable, without status migrainosus; R00.1 Bradycardia, unspecified; I10 Essential (primary) hypertension; I48.91 Unspecified atrial fibrillation; G47.33 Obstructive sleep apnea (adult) (pediatric); E03.9 Hypothyroidism, unspecified; Z96.653 Presence of artificial knee joint, bilateral; Z79.01 Long term (current) use of anticoagulants; Z86.718 Personal history of other venous thrombosis and embolism; Z72.0 Tobacco use
CPT/HCPCS: 36415; 70549; 70553; 80048; 80053; 81000; 83735; 84443; 85025; 85610; 93005; 96361; 96374; 96375; 97162; 97530; 99285; A9585; C8929; G0378; J1200; J1885; J2765; J7030